=== PATIENT | female | born 1965 | race Caucasian/White ===

== ENCOUNTER → 2023-06-03 08:30 | Outpatient (REF) | payer BC, SELFPAY | LOC: WDC 08:30 | PROVIDERS: ATTENDING PHYSICIAN Surgery | DX: N63.21 Unspecified lump in the left breast, upper outer quadrant (principal) | CPT/HCPCS: 76642 ==

== ENCOUNTER 2024-03-27 18:10 | Emergency (ER) | payer BC, SELFPAY ==
[2024-03-27 18:16] VITALS: BP 111/85
--- NOTE | 2024-03-27 20:37 | ED.GENMED ---
History of Present Illness
General
Chief Complaint: Anxiety
Source: patient
Exam Limitations: none
Time Seen by Provider: 03/27/24 19:31
Nursing documentation reviewed up to this point in time: agreed with
History of Present Illness
History of Present Illness:
Patient presents to ED for evaluation secondary to increased stress levels at home, secondary to work situation as well as a recent break-up with her boyfriend. Patient denies, however, suicidal or homicidal ideation. Patient denies loss of
appetite. Patient does report intermittent episodes of difficulty sleeping at night. Denies previous history of similar symptoms. Denies recent illness. Denies use of any illicit medications.
Review of Systems
Review of Systems
Allergies reviewed?: Yes
All Other Systems: ROS reviewed and negative except as documented in HPI and ROS
Constitutional: Reports no symptoms
EENT: Reports no symptoms
Respiratory: Reports no symptoms
Cardiac: Reports no symptoms
ABD/GI: Reports no symptoms
Musculoskeletal: Reports no symptoms
Skin: Reports no symptoms
Neurological: Reports no symptoms
Psychiatric: Reports anxiety
Phy Exam
Physical Exam
Physical Exam:
Physical Exam
General: no apparent distress, not acutely ill. afebrile
Head: nc/at. eomi
Neck: supple. no meningeal signs.
Heart: s1/s2 regular rate and rhythm, no murmur. equal radial pulses.
Lungs: no acute respiratory distress. clear bilaterally
Abdomen: normal bowel sounds. not tender.
Neuro: alert and oriented x3. no focal neurological deficits
Skin: no rash
Psychiatric: well kept. interactive and cooperative
Extremities: no edema. no calf tenderness.
Course
Orders/Labs/Results
Orders:
Orders
03/27/24 18:19
Crisis Consult Urgent
Reason for Consult: anxiety
Vital Signs
Initial and Last Documented VS:
Initial Vital Signs
Temp Pulse Resp BP Pulse Ox
98.1 F 102 18 111/85 98
03/27/24 18:16 03/27/24 18:16 03/27/24 18:16 03/27/24 18:16 03/27/24 18:16
Last Documented Vital Signs
Temp Pulse Resp BP Pulse Ox
98.1 F 102 18 111/85 98
03/27/24 18:16 03/27/24 18:16 03/27/24 18:16 03/27/24 18:16 03/27/24 18:16
MDM/Problems Addressed
MDM/Problems Addressed:
History and exam consistent with likely increased stress level, multifactorial. Patient states that she lives at home with her daughter, and does not feel unsafe, especially with her ongoing relationship with her ex-boyfriend. Patient evaluated in
ED by Ilya flores who provided patient with outpatient resources. Patient does not have any suicidal or homicidal ideation. After discussion, patient will be provided with a short course of Xanax, to be used as needed, until she is
evaluated further as an outpatient. In addition, as patient states that her family physician will not be able to see her until June 2023, patient provided with information for [facility] clinic, where she can be seen
earlier, if needed. Patient expresses understanding at time of discharge.
*Critical Care Note
Total Time (30-74mins, 75-104mins- exclusive of procedures): Not Applicable
ED Attending Note
-
Portions of this chart may have been created with voice recognition software.� Occasional wrong word or��sound alike� substitutions may have occurred due to the inherent limitations of voice recognition software.
Discharge Plan
Departure
Patient Disposition: Home (Routine Discharge)
Date of Disposition: 03/27/24
Time of Disposition: 20:37
Patient with high blood pressure during this ER visit?: No
Condition: Fair
Discharge Problem:
Anxiety
Instructions: Generalized Anxiety Disorder (DC)
Prescriptions:
New
alprazolam [Xanax] 0.5 mg tablet
0.5 mg PO Q8HPRN PRN (Reason: anxiety) Qty: 10 0RF
No Action
Vitamin D2
50,000 units PO PRN PRN (Reason: when deficient)
oxycodone 10 MG tablet
10 mg PO Q4HPRN PRN (Reason: pain) Qty: 30 0RF
Patient Comments:
This order if for post-op. Pt has never taken dose of it.
oxycodone 10 MG tablet
5 mg PO Q4HPRN PRN (Reason: pain) Qty: 30 0RF
Patient Comments:
This order if for post-op. Pt has never taken dose of it.
Tamoxifen
20 mg PO DAILY
Referrals:
[facility] [Outside]
Zuleyma Montes PA-C [Family Provider] -
Activity Restrictions/Additional Instructions:
As discussed, please follow-up with your primary care physician and/or referred [facility] practice clinic for further evaluation and treatment. In addition, you have been provided with outpatient resources for psychiatric
consultation. In the meantime, you are being provided with short course of medication to help with anxiety, to be taken strictly as needed while you are at home. Your prescription has been sent electronically to [facility] pharmacy in [place].
Interventions
Interventions:
*Risk Screen - Suicide Last Done: 03/27/24 18:16
*General Assessment Last Done: 03/27/24 18:16
*Neglect/Abuse Screening Last Done: 03/27/24 18:16
ED- Fall Risk Assessment Last Done: 03/27/24 20:44
*ED COVID-19 Vaccine History Last Done: 03/27/24 18:16
*Nursing Disposition Last Done: 03/27/24 20:44
ED-Psychological Assessment Last Done: 03/27/24 20:44
Discharge Date and Time
Discharge Date/Time: 03/27/24 20:45
Print Language: [place]UADORE[place]
== END 2024-03-27 20:45 | disposition home or self-care (01) ==
LOC: EMR 18:10
PROVIDERS: EMERGENCY PHYSICIAN Emergency Medicine; FAMILY PHYSICIAN Physician Assistant Medical
DX: F41.9 Anxiety disorder, unspecified (principal); Z56.3 Stressful work schedule; Z63.8 Other specified problems related to primary support group
CPT/HCPCS: 99283

== ENCOUNTER → 2024-11-01 16:39 | Outpatient (REF) | payer BC, SELFPAY | LOC: MRI 3T 16:39 | PROVIDERS: ATTENDING PHYSICIAN Surgery | DX: C50.411 Malignant neoplasm of upper-outer quadrant of right female breast (principal); Z17.0 Estrogen receptor positive status [ER+]; Z98.82 Breast implant status | CPT/HCPCS: 77049; A9585 ==